=== PATIENT | female | born 1995 | race African-American/Black ===

== ENCOUNTER 2021-06-20 09:04 | Outpatient (CLI) | payer BC, SELFPAY ==
[2021-06-20 10:06] LABS: Beta HCG Quantitative < 2.39 mIU/ML
== END 2021-06-20 09:05 | disposition home or self-care (01) ==
PROVIDERS: Visit Provider Obstetrics & Gynecology
DX: Z30.9 Encounter for contraceptive management, unspecified (principal)
CPT/HCPCS: 36415; 84702